=== PATIENT | female | born 1960 | race Caucasian/White ===

== ENCOUNTER 2022-03-21 01:30 | Emergency (ER) | payer BC ==
--- OUTSIDE RECORDS SUMMARY | 2022-03-21 01:34 | XMS REPORT | Continuity of Care Document ---
:1960 Author Organization [facility] t Address [address] [place] [address] Care Team Providers Name Role Phone DR TED SAHU Attending Clinician Unavailable DR TED SAHU Admitting Clinician Unavailable Problems This patient has no known problems. Allergies, Adverse Reactions, Alerts This patient has no known allergies or adverse reactions. Medications This patient has no known medications. Procedures This patient has no known procedures. Encounters Start End Encounter Admission Attending Care Care Encounter Source Date/Time Date/Time Type Type Clinicians Facility Department ID 2019-04-21 2019-04-21 Outpatient [facility] [id number] [place] 04:27:00 06:46:00 [facility] Results Test Description Test Time Test Comments Results Result Comments Source GLUCOMETER GLUCOSE- LAB USE ONLY 2019-04-21 09:45:00 Test Item Value Reference Range Interpretation Comme nts GLUCOMETER (test code = GMG) 150 mg/dL 70-100 H URINE MONOCLONALFB2019-04-21 04:46:00 Test Item Value Reference Range Interpretation Comments PREG UR (test code = PGU) Negative NEGATIVE
[2022-03-21] MEDS ORDERED: MORPHINE 4 MG/ML SYR ONE (01:53)
[2022-03-21] MEDS ORDERED: DIAZEPAM 5 MG TABLET ONE (01:53)
--- NOTE | 2022-03-21 05:04 | ER ---
Nurse's Notes [facility] Name: Shakira Hart Age: 61 yrs Sex: Female : 1960 Arrival Date: 03/21/2022 Time: 01:35 Bed 2 Private MD: Diagnosis: Compression fracture L5;Low back pain Presentation: 03/21 01:35 Chief complaint: Patient states: low back pain reports twisted back while trying to kl control family dog laid on floor in prone position pt reports unable to get up on own. Initial Sepsis Screen: Does the patient meet any 2 criteria? No. Patient's initial sepsis screen is negative. Does the patient have a suspected source of infection? No. Patient's initial sepsis screen is negative. Risk Assessment: Do you want to hurt yourself or someone else? Patient reports no desire to harm self or others. Onset of symptoms was March 21, 2022 at 01:00. 01:35 Method Of Arrival: EMS: [facility] 01:35 Acuity: ELLYN 3 kl 05:20 Coronavirus screen: At this time, the client does not indicate any symptoms associated ll3 with coronavirus-19. Ebola Screen: No symptoms or risks identified at this time. Triage Assessment: 01:43 General: Appears distressed, uncomfortable, Behavior is cooperative, anxious. Pain: Complains of pain in lumbar area Pain radiates to leg Pain currently is 10 out of 10 on a pain scale. Noted to be grimacing, guarding, resistant to movement. EENT: No deficits noted. No signs and/or symptoms were reported regarding the EENT system. Neuro: No deficits noted. Cardiovascular: No deficits noted. Respiratory: No deficits noted. GI: No deficits noted. No signs and/or symptoms were reported involving the gastrointestinal system. : No deficits noted. No signs and/or symptoms were reported regarding the genitourinary system. Derm: No deficits noted. No signs and/or symptoms reported regarding the dermatologic system. Musculoskeletal:. Historical: - Allergies: 01:38 NKDA; kl - Home Meds: 01:38 losartan Oral [Active]; Metformin Oral [Active]; Simvastatin Oral [Active]; kl - PMHx: 01:38 Diabetes - NIDDM; Hyperlipidemia; Hypertension; kl 01:41 fractured back; kl 01:41 Osteoporosis; kl - Immunization history:: Adult Immunizations up to date. - Social history:: Smoking status: Reported history of juuling and/or vaping. Screenin:19 Abuse screen: Denies threats or abuse. Denies injuries from another. Nutritional ll3 screening: No deficits noted. Tuberculosis screening: No symptoms or risk factors identified. Fall Risk No fall in past 12 months (0 pts). No secondary diagnosis (0 pts). No IV (0 pts). Ambulatory Aid- None/Bed Rest/Nurse Assist (0 pts). Gait- Impaired (20 pts.). Mental Status- Oriented to own ability (0 pts). Total Kate Fall Scale indicates No Risk (0-24 pts). Assessment: 03:30 Reassessment: Patient and/or family updated on plan of care and expected duration. Pain ll3 level reassessed. Patient is alert, oriented x 3, equal unlabored respirations, skin warm/dry/pink. States pain has improved to 2/10 Patient states feeling better. Patient states symptoms have improved. 05:42 General: Attempted to call [facility] no answer.. tw5 Vital Signs: 01:35 BP 171 / 112; Pulse 98; Resp 18; Pulse Ox 99% ; Pain 10/10; kl 03:29 BP 124 / 70; Pulse 91; Resp 16; Pulse Ox 94% ; ll3 ED Course: 01:35 Patient arrived in ED. kl 01:35 Gama Lala DO is Attending Physician. ms3 01:38 Triage completed. kl 02:46 Lumbar Spine (3 Views) XRAY In Process Unspecified. EDMS 04:04 CT Lumbar Spine Wo Con In Process Unspecified. EDMS 05:19 Patient has correct armband on for positive identification. Placed in gown. Bed in low ll3 position. Call light in reach. Side rails up X 1. Adult w/ patient. 05:19 No provider procedures requiring assistance completed. Patient did not have IV access ll3 during this emergency room visit. 05:20 Arm band placed on Patient placed in an exam room, on a stretcher, on pulse oximetry. ll3 Administered Medications: 01:50 Drug: morphine 4 mg Route: IM; Site: right deltoid; ll3 01:50 Drug: Valium (diazepam) 5 mg Route: PO; ll3 05:37 CANCELLED (Physician Discretion): HYDROcodone-acetaminophen 5 mg-325 mg 1 tabs PO once ms3 06:02 Drug: [place] (HYDROcodone-acetaminophen) 10 mg-325 mg 1 tabs Route: PO; ev Medication: 05:19 VIS not applicable for this client. ll3 Outcome: 05:03 Discharge ordered by . ms3 05:19 Discharged to home via wheelchair, with significant other. 3 05:19 Condition: stable 05:19 Discharge instructions given to patient, significant other, Instructed on discharge instructions, follow up and referral plans. medication usage, Demonstrated understanding of instructions, follow-up care, medications, Prescriptions given X 1. 07:06 Patient left the ED. tw5 Signatures: Dispatcher [employer] EDMS Niki Jennings RN RN Gama Rothman DO DO ms3 Jody Vizcarra tw5 Jane Shankar RN RN 3
--- NOTE | 2022-03-21 05:04 | EDPHYS ---
Physician Documentation [facility] Name: Shakira Hart Age: 61 yrs Sex: Female : 1960 Arrival Date: 03/21/2022 Time: 01:35 Bed 2 Private MD: ED Physician Gama Lala HPI: 03/21 01:38 This 61 yrs old Female presents to ER via Unassigned with complaints of Low back pain. ms3 01:38 61-year-old female with past medical history of osteopenia, lumbar fracture, chronic ms3 back pain, hypertension, diabetes, hyperlipidemia presents after wrestling and dog off of a cat and twisting her back 20 minutes prior to arrival. Patient endorses nausea, denies vomiting. Patient states her pain is a 10/10 and described as "pain." Patient denies alleviating factors. Patient has taken Tylenol PM without relief. Patient states movement makes the pain worse.. Historical: - Allergies: 01:38 NKDA; kl - Home Meds: 01:38 losartan Oral [Active]; Metformin Oral [Active]; Simvastatin Oral [Active]; kl - PMHx: 01:38 Diabetes - NIDDM; Hyperlipidemia; Hypertension; kl 01:41 fractured back; kl 01:41 Osteoporosis; kl - Immunization history:: Adult Immunizations up to date. - Social history:: Smoking status: Reported history of juuling and/or vaping. ROS: 01:38 Constitutional: Negative for fever, and chills. Neck: Negative for injury, pain, and ms3 swelling, Cardiovascular: Negative for chest pain, and palpitations. Respiratory: Negative for shortness of breath, cough, wheezing, and pleuritic chest pain, Abdomen/GI: Negative for abdominal pain, nausea, vomiting, diarrhea, and constipation. 01:38 Back: Positive for pain at rest, pain with movement. 01:38 All other systems are negative. Exam: 01:38 Constitutional: This is a well developed, well nourished patient who is awake, alert, ms3 and in no acute distress. Head/Face: Normocephalic, atraumatic. Neck: Trachea midline, no cervical lymphadenopathy. Supple, full range of motion without nuchal rigidity, or vertebral point tenderness. No Meningismus. Chest/axilla: Normal chest wall appearance and motion. Nontender with no deformity. Cardiovascular: Regular rate and rhythm with a normal S1 and S2. No gallops, murmurs, or rubs. Normal PMI, no JVD. No pulse deficits. Respiratory: Lungs have equal breath sounds bilaterally, clear to auscultation and percussion. No rales, rhonchi or wheezes noted. No increased work of breathing, no retractions or nasal flaring. Abdomen/GI: Soft, non-tender, with normal bowel sounds. No distension or tympany. No guarding or rebound. No evidence of tenderness throughout. MS/ Extremity: Pulses equal, no cyanosis. Neurovascular intact. Full, normal range of motion. Neuro: Awake and alert, GCS 15, oriented to person, place, time, and situation. Cranial nerves II-XII grossly intact. Motor strength 5/5 in all extremities. Sensory grossly intact. Cerebellar exam normal. Normal gait. Psych: Awake, alert, with orientation to person, place and time. Behavior, mood, and affect are within normal limits. 01:38 Back: pain, that is severe, of the lumbar area. Vital Signs: 01:35 BP 171 / 112; Pulse 98; Resp 18; Pulse Ox 99% ; Pain 10/10; kl 03:29 BP 124 / 70; Pulse 91; Resp 16; Pulse Ox 94% ; ll3 MDM: 01:35 Patient medically screened. ms3 05:22 Data reviewed: vital signs, nurses notes, radiologic studies, and as a result, I will ms3 discharge patient. Counseling: I had a detailed discussion with the patient and/or guardian regarding: the historical points, exam findings, and any diagnostic results supporting the discharge/admit diagnosis, radiology results, the need for outpatient follow up, to return to the emergency department if symptoms worsen or persist or if there are any questions or concerns that arise at home. ED course: Discussed CT findings with patient and her . Offered to facilitate rehab transfer for patient and patient declines. Patient given prescription for Tylenol 3. Patient to follow-up with Dr. Rishi Olea in 1 to 2 days. Patient understands and agrees with plan. All questions were answered. Return precautions discussed include worsening symptoms, or any other concerns. On reevaluation patient's pain is better controlled, patient is alert and oriented x4, in no apparent distress, nontoxic-appearing.. 03/21 01:37 Order name: Lumbar Spine (3 Views) XRAY ms3 03/21 03:30 Order name: CT Lumbar Spine Wo Con ms3 Administered Medications: 01:50 Drug: morphine 4 mg Route: IM; Site: right deltoid; ll3 01:50 Drug: Valium (diazepam) 5 mg Route: PO; ll3 05:37 CANCELLED (Physician Discretion): HYDROcodone-acetaminophen 5 mg-325 mg 1 tabs PO once ms3 06:02 Drug: [place] (HYDROcodone-acetaminophen) 10 mg-325 mg 1 tabs Route: PO; ev Disposition Summary: 03/21/22 05:03 Discharge Ordered Location: Home ms3 Condition: Stable ms3 Diagnosis - Compression fracture L5 ms3 - Low back pain ms3 Followup: ms3 - With: Private Physician - When: 1 - 2 days - Reason: Recheck today's complaints Discharge Instructions: - Discharge Summary Sheet ms3 - Acute Back Pain, Adult ms3 - Spinal Compression Fracture ms3 Forms: - Medication Reconciliation Form ms3 - Thank You Letter ms3 - Antibiotic Education ms3 - Prescription Opioid Use ms3 Prescriptions: - Tylenol-Codeine #3 300 mg-30 mg Oral - take 1 tablet by ORAL route every 4-6 hours; 18 tablet; Refills: 0, Product ms3 Selection Permitted Signatures: Dispatcher [employer] Niki Herzog RN RN Gama Rothman DO DO ms3 Jane Shankar RN RN ll3 Corrections: (The following items were deleted from the chart) 05:37 05:36 HYDROcodone-acetaminophen 5 mg-325 mg 1 tabs PO once ordered. ms3 ms3
[2022-03-21] MEDS ORDERED: LIDOCAINE 4% PATCH ONE (05:38)
[2022-03-21] MEDS ORDERED: HYDROCODONE/APAP 10/325 TAB ONE (05:49)
[2022-03-22 18:17] VITALS: BP 124/70; O2SAT 94
--- NOTE | 2022-03-23 12:29 | RAD REPORT ---
EXAM DESCRIPTION: CT Lumbar Spine Without Intravenous Contrast CLINICAL HISTORY: The patient is 61 years old and is Female; Low back pain, no red flags, no prior m anagement TECHNIQUE: Axial computed tomography images of the lumbar spine without intravenous contrast. Sagi ttal and coronal reformatted images were created and reviewed. This CT exam was performed using one or more of the following dose reduction techniques: automated exposure control, adjustment of the mA and/or kV according to patient size, and/or use of iterative reconstruction technique. COMPARISON: No relevant prior studies available. FINDINGS: VERTEBRAE: Age-indeterminate L1 and L3 superior endplate compression deformities, though favored to be chronic and related to Schmorl's nodes. Acute compression deformity of the L5 vertebra, with approximately 50% height loss and lytic fracture line demonstrated through the anterior inferior vertebral margin and extending obliquely to the inferior endplate. No extension of fracture into the posterior elements. No bony retropulsion int o the adjacent spinal canal. Suspected small paravertebral hematoma, with subtle inflammatory strandi ng demonstrated along the left greater than right anterior paravertebral margin. No additional acute fractures. No subluxation. DISCS/SPINAL CANAL/NEURAL FORAMINA: No acute findings. No spinal canal stenosis. SOFT TISSUES: Unremarkable. KIDNEYS AND URETERS: Tiny right-sided central renal vascular calcification. VASCULAR: Moderate calcified atherosclerosis of the distal abdominal aorta and proximal iliac vascu lature. IMPRESSION: 1. Acute L5 compression fracture with no posterior element involvement or bony retropu lsion into the spinal canal. 2. Age-indeterminate L1 and L3 superior endplate compression deformities, though favored to be plugman vivien and related to Schmorl's nodes. No visualized fracture line, associated paravertebral hematoma, or bony retropulsion. 3. No other acute osseous abnormality. Electronically signed by: Too Landry MD 03/21/2022 4:33 AM CDT Due to temporary technical issues with the PACS/Fluency reporting system, reports are being signed by the in house radiologists without review as a courtesy to insure prompt reporting. The interpreting radiologist is fully responsible for the content of the report.
--- NOTE | 2022-03-23 13:43 | RAD REPORT ---
EXAM DESCRIPTION: Lumbar Spine 3 Views CLINICAL HISTORY: PAIN COMPARISON: None. FINDINGS: 3 views of the lumbar spine. Loss of anterior vertebral body height at L1, L3, and L5 with out definite acute cortical step-off or subluxation. Osteopenia. Pedicles identified throughout. Mult ilevel mild loss of intervertebral disc height with endplate spondylosis. IMPRESSION: 1. Age-indeterminate compression deformities at L1, L3, and L5. Correlation for point te nderness recommended. MRI would provide more complete characterization for acuity. 2. Multilevel degenerative change of the lumbar spine. Electronically signed by: Geovanny Teran 03/21/2022 3:25 AM CDT Due to temporary technical issues with the PACS/Fluency reporting system, reports are being signed by the in house radiologists without review as a courtesy to insure prompt reporting. The interpreting radiologist is fully responsible for the content of the report.
== END 2022-03-21 07:06 | disposition home or self-care (01) ==
LOC: ER 01:30
DX: S32.059A Unspecified fracture of fifth lumbar vertebra, initial encounter for closed fracture (principal); E11.9 Type 2 diabetes mellitus without complications; I10 Essential (primary) hypertension
CPT/HCPCS: 72131; 72100; 96372; 99284; J2001